=== PATIENT | female | born 1990 | race Caucasian/White ===

== ENCOUNTER 2020-12-07 16:33 | Outpatient (CLI) | payer OTHER | END 2020-12-07 16:34 | disposition home or self-care (01) | LOC: CSHULT 16:33 | PROVIDERS: ATTEND Nurse Practitioner Women's Health | DX: O99.891 Other specified diseases and conditions complicating pregnancy (principal); R10.2 Pelvic and perineal pain; O34.81 Maternal care for other abnormalities of pelvic organs, first trimester; O20.9 Hemorrhage in early pregnancy, unspecified; N83.201 Unspecified ovarian cyst, right side; Z3A.01 Less than 8 weeks gestation of pregnancy | CPT/HCPCS: 76856; 93976 ==